=== PATIENT | female | born 1955 | race Two or more races ===

== ENCOUNTER 2017-12-31 18:51 | Emergency (ER) | payer SELFPAY ==
[~2017-12-31] VITALS: Ht 160 cm; Wt 83.0 kg
[2017-12-31 18:55] VITALS: BP 170/86
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
[2017-12-31] MEDS ORDERED: Ketorolac 60mg Inj IM ONE (19:15)
[2017-12-31] MEDS ORDERED: NORCO 5-325 TA1 EACH ORAL (20:00)
[2017-12-31 20:15] VITALS: BP 170/86
--- NOTE | 2018-01-01 10:42 | Diagnostic Imaging Report ---
Indication: Back pain Comparison: None Findings: 3 views of the lumbar spine were obtained. Multilevel narrowing of intervertebral disks and associated endplate and facet osteophytes are present. No malalignment identified. No acute fracture definitely seen. Bones are osteopenic. Impression: Mild spondylosis. No acute injury appreciated.
== END 2017-12-31 20:15 | disposition home or self-care (01) ==
LOC: EDBD 18:51 → EMR 19:26
DX: M54.5 Low back pain (principal); S80.212A Abrasion, left knee, initial encounter; I10 Essential (primary) hypertension; E11.9 Type 2 diabetes mellitus without complications; W18.39XA Other fall on same level, initial encounter; Y92.811 Bus as the place of occurrence of the external cause
CPT/HCPCS: 72020; 99283